=== PATIENT | male | born 1960 | race Caucasian/White ===

== ENCOUNTER 2016-12-13 14:20 | Observation (INO) | payer BC, OTHER ==
[2016-12-13 14:54] LABS: Basophils # (A) 0.1 k/uL (0-0.2); Basophils % (A) 1 %; CH 33.3; CHCM 34.2; Eosinophils # (A) 0.2 k/uL (0-0.7); Eosinophils % (A) 2 %; HCT 43.1 % (39.0-53.0); HDW 2.28; HGB 14.4 gm/dL (13.0-17.5); Luc # (Auto) 0.17; Luc % (Auto) 2; Lymphocytes # (A) 1.9 k/uL (1.0-4.8); Lymphocytes % (A) 21 %; MCH 32.7 pg (25.0-35.0); MCHC 33.5 g/dL (31.0-37.0); MCV 97.8 fL (80.0-100.0); Mean Platelet Volume 8.5; Monocytes # (A) 0.6 k/uL (0-1.0); Monocytes % (A) 6 %; Neutrophils # (A) 6.1 k/uL (1.3-7.7); Neutrophils % (A) 68 %; RBC 4.41 m/uL (4.30-5.90); RDW 13.1 % (11.5-15.5); WBC 8.9 k/uL (3.8-10.6)
[2016-12-13 15:04] LABS: INR 1.1 (<1.2); Partial Thromboplastin Time 25.6 sec (22.0-30.0); Prothrombin Time 10.8 sec (9.0-12.0)
[2016-12-13 15:09] LABS: ALT 44 U/L (21-72); AST 26 U/L (17-59); Alkaline Phosphatase 61 U/L (38-126); Anion Gap 9 mmol/L; Blood Urea Nitrogen 28 mg/dL (9-20); Calcium 9.6 mg/dL (8.4-10.2); Carbon Dioxide 24 mmol/L (22-30); Chloride 107 mmol/L (98-107); Glucose 107 mg/dL (74-99); Magnesium 1.9 mg/dL (1.6-2.3); Non-African American GFR(MDRD) >60 (>60 ml/min/1.73 sqM); Potassium 4.2 mmol/L (3.5-5.1); Sodium 140 mmol/L (137-145); Total Bilirubin 0.4 mg/dL (0.2-1.3); Total Protein 7.2 g/dL (6.3-8.2)
[2016-12-13 15:20] LABS: Creatine Kinase 172 U/L (55-170)
--- NOTE | 2016-12-13 15:28 | XR ---
EXAMINATION TYPE: XR chest 2V DATE OF EXAM: 12/13/2016 COMPARISON: NONE HISTORY: Shortness of breath TECHNIQUE: Frontal and lateral views of the chest are obtained. FINDINGS: Scattered senescent parenchymal changes noted. Hyperinflation compatible with COPD. No evidence for infiltrate. No evidence for atelectasis. Heart size is stable. Mediastinal structures are stable and grossly unremarkable. No evidence for hilar prominence. Degenerative changes dorsal spine. IMPRESSION: 1. No evidence for acute pulmonary disease.
[2016-12-13 15:33] LABS: Troponin I <0.012 ng/mL (0.000-0.034)
[2016-12-13 15:35] LABS: Creatine Kinase MB 3.3 ng/mL (0.0-2.4)
[2016-12-13] MEDS ORDERED: ASPIRIN 325 MG TAB PO STA (16:32)
[2016-12-13] MEDS ORDERED: MORPHINE SULFATE 4 MG/ML SYRINGE IV PRN (16:33)
[2016-12-13] MEDS ORDERED: NALOXONE 0.4 MG/ML 1 ML VIAL IV PRN (16:33)
[2016-12-13] MEDS ORDERED: ACETAMINOPHEN TAB 325 MG TAB PO PRN (16:33)
[2016-12-13] MEDS ORDERED: ONDANSETRON 4 MG/2 ML VIAL IVP PRN (16:33)
[2016-12-13] MEDS ORDERED: HYDROcodone/APAP 5-325MG 1 EACH TAB PO PRN (16:36)
[2016-12-13] MEDS ORDERED: SODIUM CHLORIDE 0.9% 1,000 ML IV SCH (16:45)
--- NOTE | 2016-12-13 16:53 | ED ---
General Adult HPI - General Chief complaint: Chest Pain Stated complaint: Chest Pain Time Seen by Provider: 12/13/16 14:40 Source: patient, family, RN notes reviewed, old records reviewed Mode of arrival: wheelchair Limitations: no limitations - History of Present Illness Initial comments: 56-year-old male presents with three-hour history of anterior chest tightness. Describes a central in nature. It is associated with some shortness of breath. Patient also describes some tingling in his face, no face or jaw pain. Pain initially presented with exertion. The time my evaluation this was nearly resolved. He also reports having a mild cough. Does have a history of heart catheterization in the past at [facility]. Denies any nausea or vomiting. States he quit smoking approximately 2 weeks ago but did smoke cigars for many years. Past medical history of lower extremity neuropathy. Father had a heart attack at the age 60. - Related Data Home Medications Medication Instructions Recorded Confirmed Gabapentin [Neurontin] 800 mg PO TID 12/13/16 12/13/16 Hydrocodone/Acetaminophen [[place] 1 tab PO BID PRN 12/13/16 12/13/16 5-325] Naproxen [Naprosyn] 500 mg PO BID PRN 12/13/16 12/13/16 Allergies Allergy/AdvReac Type Severity Reaction Status Date / Time No Known Allergies Allergy Verified 12/13/16 14:45 Review of Systems ROS Statement: Those systems with pertinent positive or pertinent negative responses have been documented in the HPI. ROS Other: All systems not noted in ROS Statement are negative. Past Medical History Additional Past Medical History / Comment(s): 01/12/15 Pt presented to [facility] ER with L sided sharp intermittent chest pain on and off past several days. Has had some SOB and profound weakness. Pt had some relief with NTG given in ER. Other HX: diverticulitis History of Any Multi-Drug Resistant Organisms: None Reported Past Surgical History: Bowel Resection, Heart Catheterization Additional Past Surgical History / Comment(s): 2011? Ccaht at [facility] which pt states was normal, bowel resection due to diverticulitis about 20 yrs ago, colonoscopy. Past Anesthesia/Blood Transfusion Reactions: No Reported Reaction Additional Past Anesthesia/Blood Transfusion Reaction / Comment(s): Pt states he has never recieved blood. Past Psychological History: No Psychological Hx Reported Smoking Status: Former smoker Past Alcohol Use History: None Reported Past Drug Use History: None Reported - Past Family History Father Family Medical History: COPD Additional Family Medical History / Comment(s): Father is alive and 8yrs old. Mother Family Medical History: Cancer Additional Family Medical History / Comment(s): Mother at age 62 yrs of cancer-pt thinks ovarian to brain. General Exam Limitations: no limitations General appearance: alert, in no apparent distress Head exam: Present: atraumatic, normocephalic Eye exam: Present: normal appearance, PERRL, EOMI ENT exam: Present: normal exam Neck exam: Present: normal inspection. Absent: tenderness, meningismus Respiratory exam: Present: normal lung sounds bilaterally, respiratory distress Cardiovascular Exam: Present: regular rate, normal rhythm GI/Abdominal exam: Present: soft. Absent: distended, tenderness, guarding Extremities exam: Present: normal inspection, normal capillary refill. Absent: pedal edema Neurological exam: Present: alert, oriented X3, CN II-XII intact. Absent: motor sensory deficit Psychiatric exam: Present: normal affect, normal mood Skin exam: Present: warm, dry. Absent: cyanosis, diaphoretic Course Vital Signs 12/13/16 12/13/16 12/13/16 14:30 14:41 15:56 Temperature 98.0 F 98.6 F Pulse Rate 66 61 Pulse Rate [ 69 Oenologist ] Respiratory 18 18 Rate Blood Pressure 114/62 100/57 O2 Sat by Pulse 99 99 Oximetry - Reevaluation(s) Reevaluation #1: 12/13/16 16:45 Reevaluation patient does report mild chest tightness. Nonradiating. Repeat EKG is obtained. EKG Findings - EKG Comments: EKG Findings:: EKG shows normal sinus rhythm, ventricular rate is 68, ID interval 182, QS duration 100, QTC [address] segment elevation or depression. Medical Decision Making - Medical Decision Making 56-year-old male presenting with anterior chest tightness associated with some shortness of breath. No nausea or vomiting, no diaphoresis. Initial EKG is nonischemic. Chest x-ray is obtained showing no acute process, laboratory studies including CBC, CMP and initial troponin are unremarkable. Cath report from 2011 is obtained. 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 There was no intervention done at that time. He has risk factors including family history and smoking. His chest pain is minimal and unchanged while in the emergency department. EKG is repeated and shows no signs of ischemia. No ST segment elevation or depression, no T-wave abnormality. Patient is given an aspirin. He will be admitted for cardiology evaluation and serial cardiac enzymes. - Lab Data Result diagrams: 12/13/16 14:40 12/13/16 14:40 Lab Results 12/13/16 12/13/16 12/13/16 Range/Units 14:40 14:40 14:40 WBC 8.9 (3.8-10.6) k/uL RBC 4.41 (4.30-5.90) m/uL Hgb 14.4 (13.0-17.5) gm/dL Hct 43.1 (39.0-53.0) % MCV 97.8 (80.0-100.0) fL MCH 32.7 (25.0-35.0) pg MCHC 33.5 (31.0-37.0) g/dL RDW 13.1 (11.5-15.5) % Plt Count 197 (150-450) k/uL Neutrophils % 68 % Lymphocytes % 21 % Monocytes % 6 % Eosinophils % 2 % Basophils % 1 % Neutrophils # 6.1 (1.3-7.7) k/uL Lymphocytes # 1.9 (1.0-4.8) k/uL Monocytes # 0.6 (0-1.0) k/uL Eosinophils # 0.2 (0-0.7) k/uL Basophils # 0.1 (0-0.2) k/uL PT (9.0-12.0) sec INR (<1.2) APTT (22.0-30.0) sec Sodium 140 (137-145) mmol/L Potassium 4.2 (3.5-5.1) mmol/L Chloride 107 (98-107) mmol/L Carbon Dioxide 24 (22-30) mmol/L Anion Gap 9 mmol/L BUN 28 H (9-20) mg/dL Creatinine 0.90 (0.66-1.25) mg/dL Est GFR (MDRD) Af Amer >60 (>60 ml/min/1.73 sqM) Est GFR (MDRD) Non-Af >60 (>60 ml/min/1.73 sqM) Glucose 107 H (74-99) mg/dL Calcium 9.6 (8.4-10.2) mg/dL Magnesium 1.9 (1.6-2.3) mg/dL Total Bilirubin 0.4 (0.2-1.3) mg/dL AST 26 (17-59) U/L ALT 44 (21-72) U/L Alkaline Phosphatase 61 (38-126) U/L Total Creatine Kinase 172 H (55-170) U/L CK-MB (CK-2) 3.3 H* (0.0-2.4) ng/mL CK-MB (CK-2) Rel Index 1.9 Troponin I <0.012 (0.000-0.034) ng/mL Total Protein 7.2 (6.3-8.2) g/dL Albumin 4.2 (3.5-5.0) g/dL 12/13/16 Range/Units 14:40 WBC (3.8-10.6) k/uL RBC (4.30-5.90) m/uL Hgb (13.0-17.5) gm/dL Hct (39.0-53.0) % MCV (80.0-100.0) fL MCH (25.0-35.0) pg MCHC (31.0-37.0) g/dL RDW (11.5-15.5) % Plt Count (150-450) k/uL Neutrophils % % Lymphocytes % % Monocytes % % Eosinophils % % Basophils % % Neutrophils # (1.3-7.7) k/uL Lymphocytes # (1.0-4.8) k/uL Monocytes # (0-1.0) k/uL Eosinophils # (0-0.7) k/uL Basophils # (0-0.2) k/uL PT 10.8 (9.0-12.0) sec INR 1.1 (<1.2) APTT 25.6 (22.0-30.0) sec Sodium (137-145) mmol/L Potassium (3.5-5.1) mmol/L Chloride (98-107) mmol/L Carbon Dioxide (22-30) mmol/L Anion Gap mmol/L BUN (9-20) mg/dL Creatinine (0.66-1.25) mg/dL Est GFR (MDRD) Af Amer (>60 ml/min/1.73 sqM) Est GFR (MDRD) Non-Af (>60 ml/min/1.73 sqM) Glucose (74-99) mg/dL Calcium (8.4-10.2) mg/dL Magnesium (1.6-2.3) mg/dL Total Bilirubin (0.2-1.3) mg/dL AST (17-59) U/L ALT (21-72) U/L Alkaline Phosphatase (38-126) U/L Total Creatine Kinase (55-170) U/L CK-MB (CK-2) (0.0-2.4) ng/mL CK-MB (CK-2) Rel Index Troponin I (0.000-0.034) ng/mL Total Protein (6.3-8.2) g/dL Albumin (3.5-5.0) g/dL Disposition Clinical Impression: Chest pain Disposition: ADMITTED IP TO THIS [facility] Condition: Stable Referrals: Tee Kinsey MD [Primary Care Provider] - 1-2 days Decision to Admit Reason: Admit from EC Decision Date: 12/13/16 Decision Time: 16:20
[2016-12-13 18:12] VITALS: BMI 39.9
[2016-12-13 21:01] LABS: Creatine Kinase 134 U/L (55-170)
--- NOTE | 2016-12-13 21:02 | P.HPIM ---
<Margarette Garcia A - Last Filed: 12/13/16 20:36> History of Present Illness H&P Date: 12/13/16 Chief Complaint: Chest pain tightness This is a 56-year-old patient of Dr. Tee Parks'vladimir with chronic stable medical conditions that include peripheral neuropathy, chronic back pain who presented to the emergency department with a three-hour history of anterior left chest wall pain/tightness. This occurred while the patient was at work he was not doing anything out of the ordinary outside his normal daily duties. Patient began midsternally traveled up underneath his left breast around to his left arm, experienced tingling to his neck a little bit to his arm, shortness of breath. Endorses feeling weak. Denies any nausea vomiting or sweating, dizziness lightheadedness. GEN.: [None] EYES: [None] HEENT: [None] NECK: [None] RESPIRATORY: [None] CARDIOVASCULAR: [Left anterior chest wall chest pain GASTROINTESTINAL: [None] GENITOURINARY: [None] MUSCULOSKELETAL: [Chronic back pain] LYMPHATICS: [None] HEMATOLOGICAL: [None] PSYCHIATRY: [None] NEUROLOGICAL: [Peripheral neuropathy] Past Medical History Additional Past Medical History / Comment(s): 01/12/15 Pt presented to [facility] ER with L sided sharp intermittent chest pain on and off past several days. Has had some SOB and profound weakness. Pt had some relief with NTG given in ER. Other HX: diverticulitis History of Any Multi-Drug Resistant Organisms: None Reported Past Surgical History: Bowel Resection, Heart Catheterization Additional Past Surgical History / Comment(s): 2011? Ccaht at [facility] which pt states was normal, bowel resection due to diverticulitis about 20 yrs ago, colonoscopy. Past Anesthesia/Blood Transfusion Reactions: No Reported Reaction Additional Past Anesthesia/Blood Transfusion Reaction / Comment(s): Pt states he has never recieved blood. Past Psychological History: No Psychological Hx Reported Additional Psychological History / Comment(s): Pt resides with his spouse. He is independent. He uses no assistive device. He drives. Smoking Status: Former smoker Past Alcohol Use History: None Reported Additional Past Alcohol Use History / Comment(s): Pt smokes 2-3 cigars a day since age 41yrs. Past Drug Use History: None Reported - Past Family History Father Family Medical History: COPD Additional Family Medical History / Comment(s): Father is alive and 8yrs old. Mother Family Medical History: Cancer Additional Family Medical History / Comment(s): Mother at age 62 yrs of cancer-pt thinks ovarian to brain. Medications and Allergies Home Medications Medication Instructions Recorded Confirmed Type Gabapentin [Neurontin] 800 mg PO TID 12/13/16 12/13/16 History Hydrocodone/Acetaminophen [[place] 1 tab PO BID PRN 12/13/16 12/13/16 History 5-325] Naproxen [Naprosyn] 500 mg PO BID PRN 12/13/16 12/13/16 History Allergies Allergy/AdvReac Type Severity Reaction Status Date / Time No Known Allergies Allergy Verified 12/13/16 14:45 Physical Exam Vitals: Vital Signs Temp Pulse Pulse Pulse Resp BP BP 12/13/16 18:13 69 61 18 12/13/16 18:02 98 F 61 18 95/67 12/13/16 16:51 63 18 110/67 12/13/16 15:56 98.6 F 61 18 100/57 12/13/16 14:41 69 12/13/16 14:30 98.0 F 66 18 114/62 Pulse Ox 12/13/16 18:13 12/13/16 18:02 95 12/13/16 16:51 98 12/13/16 15:56 99 12/13/16 14:41 12/13/16 14:30 99 Intake and Output 12/13/16 12/13/16 12/13/16 06:59 14:59 22:59 Other: Voiding Method Toilet Weight 122.47 kg 122.47 kg Patient Weight 12/14/16 06:59 Weight 122.47 kg VITAL SIGNS: [Reviewed. BMI noted] GENERAL: [Average built, lying in bed, comfortable]. EYES: [Pupils equal. Conjunctiva francy]l. HEENT: [External appearance of nose and ears normal, oral cavity grossly normal] . NECK: [JVD not raised; masses not palpable]. HEART: [First and second heart sounds are normal; no edema]. LUNGS:[ Respiratory rate normal; clear to auscultation]. ABDOMEN: [Soft, mild abdominal tenderness to the right lower quadrant, liver spleen not palpable, no masses palpable]. LYMPHATICS: [No lymph nodes palpable in the axilla and neck]. PSYCH: [Alert and oriented x3; mood and affect francy]l. NEUROLOGICAL: [Cranial nerves grossly intact; no facial asymmetry, power and sensation grossly intact]. Results CBC & Chem 7: 12/13/16 14:40 12/13/16 14:40 Labs: Abnormal Lab Results - Last 24 Hours (Table) 12/13/16 12/13/16 Range/Units 14:40 14:40 BUN 28 H (9-20) mg/dL Glucose 107 H (74-99) mg/dL Total Creatine Kinase 172 H (55-170) U/L CK-MB (CK-2) 3.3 H* (0.0-2.4) ng/mL Thrombosis Risk Factor Assmnt - Choose All That Apply Any of the Below Risk Factors Present?: Yes Each Factor Represents 1 point: Age 41-60 years, Obesity (BMI >25) Other Risk Factors: No Thrombosis Risk Factor Assessment Total Risk Factor Score: 2 Thrombosis Risk Factor Assessment Level: Low Risk Assessment and Plan Plan: ASSESSMENT: -Acute anterior left sided chest pain in a patient with a history of cardiac catheterization 5 years ago, clean coronaries at that time -Peripheral neuropathy unspecified -Chronic back pain -Obesity, BMI 39.9 -Cigar smoking PLAN: Reorder home medications, consult cardiology, telemetry monitoring, serial EKG and troponins. Patient counseled on smoking cessation. We will continue to monitor patient closely <Brennen Vergara - Last Filed: 12/13/16 22:18> History of Present Illness Attending note: Date of service 12/13/2016 This patient was seen and examined by me. I discussed with the nurse practitioner Ms. Garcia. 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 Patient was short of breath no perspiration. Humphreys tired and rundown no edema. Patient had a cardiac cath in 2011 reportedly negative Past medical history: Peripheral neuropathy, idiopathic On examination: Blood pressure 100/62, pulse ox 99% room air, BMI 39.9 Lungs-decreased breath sounds Cardiovascular-first seconds are normal Investigations: Troponin 2 negative EKG unremarkable Assessment and plan: -Left anterior chest wall pain with cardiac risk factors including smoking, obesity -Chronic nicotine dependence patient is a cigar smoker -Obesity BMI 39.9 -Colonic diverticulosis -Peripheral neuropathy idiopathic Serial cardiac enzymes and place. Cardiology consulted. Patient will at least need a stress test. Home medications to be renewed. Care was discussed with the patient. Given nicotine patch Physical Exam Vitals: Vital Signs Temp Pulse Pulse Pulse Resp BP BP 12/13/16 18:13 69 61 18 12/13/16 18:02 98 F 61 18 95/67 12/13/16 16:51 63 18 110/67 12/13/16 15:56 98.6 F 61 18 100/57 12/13/16 14:41 69 12/13/16 14:30 98.0 F 66 18 114/62 Pulse Ox 12/13/16 18:13 12/13/16 18:02 95 12/13/16 16:51 98 12/13/16 15:56 99 12/13/16 14:41 12/13/16 14:30 99 Intake and Output 12/13/16 12/13/16 12/13/16 06:59 14:59 22:59 Other: Voiding Method Toilet Weight 122.47 kg 122.47 kg Patient Weight 12/14/16 06:59 Weight 122.47 kg Results CBC & Chem 7: 12/13/16 14:40 12/13/16 14:40 Labs: Abnormal Lab Results - Last 24 Hours (Table) 12/13/16 12/13/16 Range/Units 14:40 14:40 BUN 28 H (9-20) mg/dL Glucose 107 H (74-99) mg/dL Total Creatine Kinase 172 H (55-170) U/L CK-MB (CK-2) 3.3 H* (0.0-2.4) ng/mL
[2016-12-13 21:14] LABS: Creatine Kinase MB 2.1 ng/mL (0.0-2.4); Troponin I <0.012 ng/mL (0.000-0.034)
[2016-12-13] MEDS: GABAPENTIN 400 MG CAP PO SCH (21:35)
[2016-12-14 03:04] LABS: Basophils # (A) 0.1 k/uL (0-0.2); Basophils % (A) 1 %; CH 33.3; CHCM 33.7; Eosinophils # (A) 0.2 k/uL (0-0.7); Eosinophils % (A) 3 %; HCT 42.2 % (39.0-53.0); HDW 2.25; HGB 14.1 gm/dL (13.0-17.5); Luc # (Auto) 0.14; Luc % (Auto) 2; Lymphocytes % (A) 29 %; MCH 33.1 pg (25.0-35.0); MCHC 33.3 g/dL (31.0-37.0); MCV 99.4 fL (80.0-100.0); Mean Platelet Volume 8.1; Monocytes # (A) 0.5 k/uL (0-1.0); Monocytes % (A) 7 %; Neutrophils # (A) 4.2 k/uL (1.3-7.7); Neutrophils % (A) 59 %; RBC 4.25 m/uL (4.30-5.90); RDW 13.5 % (11.5-15.5); WBC 7.1 k/uL (3.8-10.6); WBC (Perox) 7.15
[2016-12-14 03:34] LABS: ALT 41 U/L (21-72); AST 21 U/L (17-59); Alkaline Phosphatase 53 U/L (38-126); Anion Gap 8 mmol/L; Blood Urea Nitrogen 24 mg/dL (9-20); Calcium 8.9 mg/dL (8.4-10.2); Carbon Dioxide 22 mmol/L (22-30); Chloride 109 mmol/L (98-107); Glucose 109 mg/dL (74-99); Non-African American GFR(MDRD) >60 (>60 ml/min/1.73 sqM); Potassium 4.1 mmol/L (3.5-5.1); Sodium 139 mmol/L (137-145); Total Bilirubin 0.3 mg/dL (0.2-1.3); Total Protein 6.2 g/dL (6.3-8.2)
[2016-12-14 03:36] LABS: Creatine Kinase 111 U/L (55-170)
[2016-12-14 03:49] LABS: Creatine Kinase MB 1.7 ng/mL (0.0-2.4); Troponin I <0.012 ng/mL (0.000-0.034)
[2016-12-14] MEDS: GABAPENTIN 400 MG CAP PO SCH (08:37)
[2016-12-14] MEDS ORDERED: ASPIRIN 325 MG TAB PO SCH (09:00)
--- NOTE | 2016-12-14 12:09 | P.CRDCN ---
History of Present Illness Consult date: 12/14/16 Chief complaint: Chest pain and shortness of breath History of present illness: This is a 56-year-old gentleman with history of recurrent chest pains and previous admissions has been experiencing increasing shortness of breath with exertion. Patient also has been having some chest pain on the left side of the chest. It seemed to be a localized and some severe tenderness. Because of the Lorcet symptoms patient came to the emergency room. His EKGs and cardiac enzymes are negative. He had a cardiac catheterization about 44 years ago and apparently no significant obstructive disease was found. He had a stress correlation study about 2 years ago that was negative. Patient is being scheduled for stress echocardiogram. Further recommendations depend upon the findings on the test Review of Systems As per the chart Past Medical History Additional Past Medical History / Comment(s): 01/12/15 Pt presented to [facility] ER with L sided sharp intermittent chest pain on and off past several days. Has had some SOB and profound weakness. Pt had some relief with NTG given in ER. Other HX: diverticulitis History of Any Multi-Drug Resistant Organisms: None Reported Past Surgical History: Bowel Resection, Heart Catheterization Additional Past Surgical History / Comment(s): 2011? Ccaht at [facility] which pt states was normal, bowel resection due to diverticulitis about 20 yrs ago, colonoscopy. Past Anesthesia/Blood Transfusion Reactions: No Reported Reaction Additional Past Anesthesia/Blood Transfusion Reaction / Comment(s): Pt states he has never recieved blood. Past Psychological History: No Psychological Hx Reported Additional Psychological History / Comment(s): Pt resides with his spouse. He is independent. He uses no assistive device. He drives. Smoking Status: Former smoker Past Alcohol Use History: None Reported Additional Past Alcohol Use History / Comment(s): Pt smokes 2-3 cigars a day since age 41yrs. Past Drug Use History: None Reported - Past Family History Father Family Medical History: COPD Additional Family Medical History / Comment(s): Father is alive and 8yrs old. Mother Family Medical History: Cancer Additional Family Medical History / Comment(s): Mother at age 62 yrs of cancer-pt thinks ovarian to brain. Medications and Allergies Home Medications Medication Instructions Recorded Confirmed Type Gabapentin [Neurontin] 800 mg PO TID 12/13/16 12/13/16 History Hydrocodone/Acetaminophen [[place] 1 tab PO BID PRN 12/13/16 12/13/16 History 5-325] Naproxen [Naprosyn] 500 mg PO BID PRN 12/13/16 12/13/16 History Allergies Allergy/AdvReac Type Severity Reaction Status Date / Time No Known Allergies Allergy Verified 12/13/16 14:45 Physical Exam Vitals: Vital Signs Temp Pulse Pulse Pulse Resp BP BP 12/14/16 12:00 98.1 F 58 L 16 106/68 12/14/16 07:36 97.9 F 53 L 18 104/72 12/14/16 04:00 98.1 F 54 L 18 104/58 12/14/16 00:00 98.1 F 54 L 60 18 100/58 12/13/16 20:00 18 12/13/16 18:13 69 61 18 12/13/16 18:02 98 F 61 18 95/67 12/13/16 16:51 63 18 110/67 12/13/16 15:56 98.6 F 61 18 100/57 12/13/16 14:41 69 12/13/16 14:30 98.0 F 66 18 114/62 Pulse Ox 12/14/16 12:00 100 12/14/16 07:36 97 12/14/16 04:00 98 12/14/16 00:00 97 12/13/16 20:00 12/13/16 18:13 12/13/16 18:02 95 12/13/16 16:51 98 12/13/16 15:56 99 12/13/16 14:41 12/13/16 14:30 99 Intake and Output 12/13/16 12/14/16 12/14/16 22:59 06:59 14:59 Other: Voiding Method Toilet Toilet # Voids 2 Weight 122.47 kg GENERAL EXAM: Patient is alert and oriented and doesn't appear to be in any acute distress HEENT: Normocephalic. Normal reaction of pupils, equal size, normal range of extraocular motion. No erythema or exudates in the throat. NECK: No masses, no nuchal rigidity. CHEST: No chest wall deformity. Significant tenderness on the left side of the chest LUNGS: Equal air entry with no crackles or wheeze. HEART: S1 and S2 normal with no audible mumurs or gallops. Regular rhythm, femorals equal on both sides.. ABDOMEN: No hepatosplenomegaly, normal bowel sounds, no guarding or rigidity. SKIN: No rashes CENTRAL NERVOUS SYSTEM: No focal deficits. EXTREMITIES: No cyanosis, clubbing or edema. Results 12/14/16 02:54 12/14/16 02:54 Cardiac Enzymes 12/13/16 12/13/16 12/13/16 Range/Units 14:40 14:40 20:28 AST 26 (17-59) U/L CK-MB (CK-2) 3.3 H* 2.1 (0.0-2.4) ng/mL Troponin I <0.012 <0.012 (0.000-0.034) ng/mL 12/14/16 12/14/16 Range/Units 02:54 02:54 AST 21 (17-59) U/L CK-MB (CK-2) 1.7 (0.0-2.4) ng/mL Troponin I <0.012 (0.000-0.034) ng/mL Coagulation 12/13/16 Range/Units 14:40 PT 10.8 (9.0-12.0) sec APTT 25.6 (22.0-30.0) sec CBC 12/13/16 12/14/16 Range/Units 14:40 02:54 WBC 8.9 7.1 (3.8-10.6) k/uL RBC 4.41 4.25 L (4.30-5.90) m/uL Hgb 14.4 14.1 (13.0-17.5) gm/dL Hct 43.1 42.2 (39.0-53.0) % Plt Count 197 185 (150-450) k/uL Comprehensive Metabolic Panel 12/13/16 12/14/16 Range/Units 14:40 02:54 Sodium 140 139 (137-145) mmol/L Potassium 4.2 4.1 (3.5-5.1) mmol/L Chloride 107 109 H (98-107) mmol/L Carbon Dioxide 24 22 (22-30) mmol/L BUN 28 H 24 H (9-20) mg/dL Creatinine 0.90 0.90 (0.66-1.25) mg/dL Glucose 107 H 109 H (74-99) mg/dL Calcium 9.6 8.9 (8.4-10.2) mg/dL AST 26 21 (17-59) U/L ALT 44 41 (21-72) U/L Alkaline Phosphatase 61 53 (38-126) U/L Total Protein 7.2 6.2 L (6.3-8.2) g/dL Albumin 4.2 3.5 (3.5-5.0) g/dL Current Medications Generic Name Dose Route Start Last Admin Trade Name Freq PRN Reason Stop Dose Admin Acetaminophen 650 mg 12/13/16 16:33 Tylenol Tab PO Q6HR PRN Mild Pain or Fever > 100.5 Hydrocodone Bitart/Acetaminophen 1 each 12/13/16 16:36 [place] 5-325 PO BID PRN Moderate Pain Aspirin 325 mg 12/14/16 09:00 12/14/16 08:37 Aspirin PO 325 mg DAILY LESA Administration Gabapentin 800 mg 12/13/16 22:00 12/14/16 08:37 Neurontin PO 800 mg TID LESA Administration Sodium Chloride 1,000 mls @ 75 mls/hr 12/13/16 16:45 12/13/16 16:41 Saline 0.9% IV 75 mls/hr .[id number] LESA Administration Morphine Sulfate 4 mg 12/13/16 16:33 Morphine Sulfate (Inj) IV Q4HR PRN Severe Pain Naloxone HCl 0.2 mg 12/13/16 16:33 Narcan IV Q2M PRN Opioid Reversal Ondansetron HCl 4 mg 12/13/16 16:33 Zofran IVP Q8HR PRN Nausea And Vomiting Intake and Output 12/13/16 12/14/16 12/14/16 22:59 06:59 14:59 Other: Voiding Method Toilet Toilet # Voids 2 Weight 122.47 kg 12/14/16 02:54 12/14/16 02:54 EKG Interpretations (text) Sinus rhythm Assessment and Plan (1) Chest pain Status: Acute Plan: Patient chest pains are atypical and he enzymes and EKGs are normal. If stress echo is normal, patient could be discharged home
--- NOTE | 2016-12-14 13:45 | P.DS ---
Providers Date of admission: 12/13/16 16:33 Expected date of discharge: 12/14/16 Attending physician: Brennen Vergara Consults: 12/13/16 16:34 Consult Physician Urgent Consulting Provider: Tomasz Shaikh Consult Reason/Comments: Chest Pain Do you want consulting provider notified?: Yes Primary care physician: Tee Kinsey [facility] Course: FINAL DIAGNOSES: -Acute anterior left sided chest pain with cardiac risk factors including smoking, obesity. -Chronic nicotine dependence patient is cigar smoker -Peripheral neuropathy idiopathic -Obesity, BMI 39.9 -Colonic diverticulosis HOSPTIAL COURSE: 56-year-old patient who presented with anterior left chest pain/tightness. Cardiology was consulted, serial troponins and labs were drawn, EKG evaluated. Chest pain thought to be atypical, troponins negative. Given patient's cardiac risk factors and last cardiac catheterization being done 5 years ago stress test completed and was negative. Patient's been up in the hallways, tolerating his diet, moving his bowels, no further complaints or symptoms of chest pains. Condition stable and patient is ready for discharge. PHYSICAL EXAM: CARDIOVASCULAR: First and second sounds noted no edema RESPIRATORY: Respiratory effort normal, breath sounds diminished bilaterally Patient was seen and examined by nurse practitioner Margarette Garcia in all elements of the case discussed with attending Dr. Vergara DISPOSITION: Patient Condition at Discharge: Stable Plan - Discharge Summary New Discharge Prescriptions: Continue Gabapentin [Neurontin] 800 mg PO TID Hydrocodone/Acetaminophen [[place] 5-325] 1 tab PO BID PRN PRN Reason: Pain Naproxen [Naprosyn] 500 mg PO BID PRN PRN Reason: Pain Discharge Medication List Gabapentin [Neurontin] 800 mg PO TID 12/13/16 [History] Hydrocodone/Acetaminophen [[place] 5-325] 1 tab PO BID PRN 12/13/16 [History] Naproxen [Naprosyn] 500 mg PO BID PRN 12/13/16 [History] Follow up Appointment(s)/Referral(s): Tee Kinsey MD [Primary Care Provider] - 1-2 days
[2016-12-14 16:10] VITALS: BP 112/64; PULSE 62; RESP 18; TEMP 98.5
--- NOTE | 2016-12-15 14:26 | ECHOS ---
TYPE OF REPORT: STRESS ECHOCARDIOGRAM INDICATIONS: Mr. Nielsen is a 56-year-old gentleman with history of shortness of breath, chest pains, being evaluated for cardiac status. BASELINE HEART RATE: 65 BASELINE BLOOD PRESSURE: 157/103 MAXIMUM HEART RATE: 145 MAXIMUM BLOOD PRESSURE: 204/116 85% MPHR 140 100% MPHR 165 METS: 8.6 MAXIMUM STAGE REACHED: 3 TOTAL EXERCISE TIME: 7:30 Baseline EKG showed sinus rhythm with normal MT interval and normal QRS duration. Blood pressure at rest is 157/103 with pulse rate of 65. Patient walked on a Harrison protocol for 7 and half minutes achieving a maximum rate of 145 with blood pressure of 168/72. EKGs taken during and after exercise did not reveal any changes to suggest ischemia. Patient became short of breath. Occasional PVCs were noted. Echo baseline images show normal wall motion and thickening. Exercise echo images show augmentation of wall motion thickening in all the segments. FINAL IMPRESSION: 1. Negative stress test. 2. Negative stress echo. PATRICK
--- NOTE | 2016-12-17 10:17 | ECHOS ---
TYPE OF REPORT: STRESS ECHOCARDIOGRAM INDICATIONS: Mr. Nielsen is a 56-year-old gentleman with history of shortness of breath, chest pains, being evaluated for cardiac status. BASELINE HEART RATE: 65 BASELINE BLOOD PRESSURE: 157/103 MAXIMUM HEART RATE: 145 MAXIMUM BLOOD PRESSURE: 204/116 85% MPHR 140 100% MPHR 165 METS: 8.6 MAXIMUM STAGE REACHED: 3 TOTAL EXERCISE TIME: 7:30 Baseline EKG showed sinus rhythm with normal DE interval and normal QRS duration. Blood pressure at rest is 157/103 with pulse rate of 65. Patient walked on a Harrison protocol for 7 and half minutes achieving a maximum rate of 145 with blood pressure of 168/72. EKGs taken during and after exercise did not reveal any changes to suggest ischemia. Patient became short of breath. Occasional PVCs were noted. Echo baseline images show normal wall motion and thickening. Exercise echo images show augmentation of wall motion thickening in all the segments. FINAL IMPRESSION: 1. Negative stress test. 2. Negative stress echo. PATRICK
== END 2016-12-14 16:15 | disposition home or self-care (01) ==
LOC: EC 14:20 → 3OBS 16:33
PROVIDERS: ADMIT Hospitalist; ATTEND Hospitalist
DX: R07.89 Other chest pain (principal); F17.290 Nicotine dependence, other tobacco product, uncomplicated; E66.9 Obesity, unspecified; Z68.39 Body mass index [BMI] 39.0-39.9, adult; G60.9 Hereditary and idiopathic neuropathy, unspecified; K57.30 Diverticulosis of large intestine without perforation or abscess without bleeding; R06.02 Shortness of breath; R05 Cough; R53.1 Weakness; R20.2 Paresthesia of skin; G89.29 Other chronic pain; M54.9 Dorsalgia, unspecified; I25.10 Atherosclerotic heart disease of native coronary artery without angina pectoris; Z79.899 Other long term (current) drug therapy; Z82.49 Family history of ischemic heart disease and other diseases of the circulatory system; Z82.5 Family history of asthma and other chronic lower respiratory diseases
CPT/HCPCS: 99285; 96360; 96361 ×2; 36415; 93005; 93017; 93350; 80053 ×2; 82550 ×2; 82553 ×2; 83735; 84484 ×2; 85025 ×2; 85610; 85730; 71020; G0378 ×2